=== PATIENT | male | born 1990 | race Caucasian/White ===

== ENCOUNTER 2020-07-10 13:37 | Emergency (ER) | payer OTHER, BC, SELFPAY ==
--- NOTE | ~2020-07-10 | XR_ITS ---
EXAMINATION: XR LUMBOSACRAL SPINE CLINICAL INFORMATION: Fall. Hit back COMPARISON: None TECHNIQUE: AP and lateral views of the lumbar spine with an additional coned down lateral spot view of the lumbosacral junction. FINDINGS: 5 non-rib bearing lumbar type vertebral bodies are seen. Mild loss of disc height at L5-S1. No compression fracture. Normal sagittal alignment. Posterior elements intact. XR/XR lumbar spine 2-3V IMPRESSION: No acute osseous abnormality. Mild degenerative disc disease at L5-S1.
[2020-07-10 13:44] VITALS: BP 126/80; BP 138/89; PULSE 100; PULSE 113; RESP 18; TEMP 36.6; O2SAT 98; BMI 24.5
--- NOTE | 2020-07-10 14:45 | ED.FALL ---
HPI - Fall General Chief Complaint: Fall Stated Complaint: FELL BACKWARDS FROM STANDING Time Seen by Provider: 07/10/20 13:47 Source: patient Mode of arrival: ambulatory History of Present Illness HPI Narrative: 29-year-old male w/no significant past medical history presenting to the ED complaining of low back pain s/p mechanical slip and fall at work [employer]. Reports was scaring cart up the back of a truck when fell backwards hitting buttock/back. Denies symptoms prior to fall. Denies injury to other area, head trauma, LOC, radiation down legs, numbness, tingling, weakness, incontinence, retention complaint: fall Onset (ago): minute(s) Related Data Previous Rx's Medication Instructions Recorded lidocaine [Lidoderm] 1 patch TOPICAL DAILY PRN #30 ea 07/10/20 MDD remove after 12 hours Allergies Allergy/AdvReac Type Severity Reaction Status Date / Time No Known Allergies Allergy Verified 07/10/20 14:25 Review of Systems Review of Systems: Constitutional: , No Fever, No Chills Cardiovascular: No Chest Pain, No SOB Respiratory: No Cough, No Sputum, No Wheezing Gastrointestinal: No Nausea, No Vomiting Genitourinary: No Hematuria, No Urinary Incontinence/retention Musculoskeletal: +back pain Skin: No Skin Lesions, No rash Neuro: No Weakness, No Numbness, No Paresthesias, no headache, no LOC Yes all other systems are reviewed and are negative [facility] Past Medical History Attestation statement: The following information was validated with the patient. Social History Social History Smoked in Last 30 Days: No Use of substances other than those prescribed or required for medical reasons: No Advance Directives: No Advance Directives Information Provided: No Physical Exam Vital Signs: Vital Signs: Last Vital Signs Temp 98 F 07/10/20 13:44 Pulse 100 07/10/20 13:44 Resp 18 07/10/20 13:44 BP 126/80 07/10/20 13:44 Pulse Ox 98 07/10/20 13:44 Body Mass Index 24.5 Const: General: cooperative and healthy appearing Orientation/consciousness: patient oriented x3 Limitations: no limitations HENMT: Head: Yes normal to inspection Ears: hearing grossly normal bilaterally General nose exam: Normal external nose present Face and sinus: Yes normal facial exam Eyes: General: appearance normal, both eyes and all related structures EOM: EOMs intact bilaterally Neck: Other: No midline cervical spinous tenderness Neck: Yes normal visual inspection Resp: Effort & Inspection: normal respiratory effort Cardio: Rate: regular rate GI: Inspection: Yes normal to inspection Palpation (GI): Soft to palpation Back/Spine/Pelvis: Other: No midline thoracic/lumbar spinous tenderness or step-off. + bilateral paraspinal lumbar MSK tenderness to palpation Skin: Rashes: no rashes Wounds: no wounds Neuro: Other: No saddle anesthesia. Ambulating with steady gait General: patient oriented x3, gait normal, tone normal and moves all extremities Gait exam (Neuro): Normal gait present Motor exam (neuro): 5/5 motor strength present throughout Extrem: General: Yes normal to inspection Course Course Course Narrative: XR lumbar spine 2-3V IMPRESSION: No acute osseous abnormality. Mild degenerative disc disease at L5-S1. > results discussed with patient including worrisome signs and symptoms and strict return precautions. He verbalized he cannot take pills, only can take liquid medications, will get OTC Tylenol/Motrin MDM - Fall MDM Narrative Medical decision making narrative: On exam VSS, NAD/well-appearing, no midline spinous tenderness throughout, no red flag symptoms, no saddle anesthesia. Likely MSK pain. Rule out fracture with fall Discharge Plan Discharge Clinical Impression: Acute lumbar back pain Patient Disposition: Home, Self-Care Instructions: Acute Low Back Pain (ED) Additional Instructions: Your back x-ray was unremarkable just showed some degenerative disc disease Lidoderm patches or numbing patches, apply to painful area In addition take Tylenol /Motrin at home [facility]-up with [facility] as this was a work related injury If you develop constant worsening back pain, numbness, tingling, weakness, urinary incontinence or retention return to the ED Prescriptions: New lidocaine [Lidoderm] 5 % adhesive patch,medicated 1 patch topical DAILY MDD remove after 12 hours PRN (Reason: pain) Qty: 30 RF: 0 Referrals: [facility] [Outside] - 3 days Stand Alone Forms: Work/School Release
== END 2020-07-10 15:40 | disposition home or self-care (01) ==
PROVIDERS: Emergency Provider Emergency Medicine; PCP Internal Medicine
DX: S39.012A Strain of muscle, fascia and tendon of lower back, initial encounter (principal); X50.9XXA Other and unspecified overexertion or strenuous movements or postures, initial encounter; Y93.9 Activity, unspecified; Y92.9 Unspecified place or not applicable; Y99.0 Civilian activity done for income or pay; Z79.899 Other long term (current) drug therapy
CPT/HCPCS: 72100; 99283

== ENCOUNTER → 2020-07-15 08:22 | Outpatient (BNVA) | payer OTHER, SELFPAY | PROVIDERS: PCP Internal Medicine; Visit Provider Internal Medicine | DX: S30.0XXD Contusion of lower back and pelvis, subsequent encounter (principal); W01.0XXD Fall on same level from slipping, tripping and stumbling without subsequent striking against object, subsequent encounter | CPT/HCPCS: 99202 ==